=== PATIENT | male | born 1965 | race Two or more races ===

== ENCOUNTER 2024-09-13 14:35 | Emergency (ER) | payer OTHER ==
[~2024-09-13] VITALS: Ht 165.1 cm; Wt 81.6 kg
[2024-09-13] MEDS ORDERED: NIFEDIPINE 10 MG CAPSULE PO ONE (15:57)
[2024-09-13] MEDS ORDERED: NIFEDIPINE 20 MG CAPSULE PO STA (16:00)
[2024-09-13] MEDS ORDERED: ASPIRIN 81 MG TABLET.EC PO STA (16:01)
[2024-09-13 16:11] LABS: HEMATOCRIT 45.3 % (39.0-48.0); HEMOGLOBIN 15.8 g/dL (13-16.00); MEAN CELL VOLUME 89.4 fL (80.0-100.00); MEAN CORPUSCULAR HEMOGLOBIN 31.1 pg (27.00-32.0); MEAN CORPUSCULAR HGB CONC 34.8 g/dl (32.0-36.0); PLATELET COUNT 277 K/uL (150-450); RED BLOOD COUNT 5.06 M/uL (4.00-6.00); RED CELL DISTRIBUTION WIDTH 14.4 % (11.5-14.5)
[2024-09-13 16:35] LABS: ALBUMIN 3.9 gm/dL (3.4-5.0); BILIRUBIN TOTAL 0.5 mg/dL (0.3-1.2); BILIRUBIN,CONJUGATED 0.12 mg/dL (0.0-0.2); BILIRUBIN,UNCONJUGATED 0.38 mg/dL (0.0-0.6); CALCIUM 9.5 mg/dL (8.5-10.1); CREATININE SERUM 0.98 mg/dL (0.70-1.30); GFR 78.02; POTASSIUM 3.8 mEq/L (3.5-5.1); TOTAL PROTEIN 8.4 gm/dL (6.4-8.2)
[2024-09-13 17:05] LABS: PH,URINE 6.5 (5.0-8.0); URINE APPEARANCE Clear; URINE BILIRRUBIN Negative (NEGATIVE); URINE BLOOD Negative; URINE COLOR Yellow; URINE GLUCOSE Negative (NEGATIVE); URINE KETONE Trace (NEGATIVE); URINE LEUKOCYTE Negative; URINE NITRATE Negative; URINE PROTEIN Trace (NEGATIVE); URINE UROBILINOGEN 0.2 E.U./dl
[2024-09-13 17:09] LABS: URINE BACTERIA 36.7 uL (0.0-1933); URINE EPITHELIAL CELLS 1.8 uL (0.0-38.8); URINE WBC 6.1 uL (0.0-23.2)
== END 2024-09-13 17:41 | disposition home or self-care (01) ==
LOC: ER 14:36
PROVIDERS: General Practice
DX: I10 Essential (primary) hypertension (principal); R41.0 Disorientation, unspecified; R51.9 Headache, unspecified